=== PATIENT | female | born 1965 | race Caucasian/White ===

== ENCOUNTER → 2016-12-09 | Outpatient (CLI) | payer MEDICARE, OTHER ==
--- NOTE | 2016-12-09 17:36 | XR ---
EXAMINATION TYPE: XR chest 2V DATE OF EXAM: 12/09/2016 5:32 PM HISTORY: J44.9 COPD. REFERENCE: None. FINDINGS: There has been moses fixation of the dorsal spine. There is a persistent dextroscoliosis. The lungs are clear. Pleural space are clear. The heart is not enlarged. IMPRESSION: NO ACUTE INTRATHORACIC ABNORMALITY.
--- NOTE | 2016-12-10 06:56 | CT ---
EXAMINATION TYPE: CT abdomen pelvis w con DATE OF EXAM: 12/09/2016 7:29 PM REFERENCE: NONE HISTORY: R10.9 Abdominal Pain, Unspecified Site HISTORY: Pt states of abdominal pain and distention. CT DLP: 566.0 mGy Automated exposure control for dose reduction was used. TECHNIQUE: Helical acquisition through the abdomen and pelvis was obtained following the oral ingesti on of with Oral Contrast and following intravenous administration of 100 mL of Omnipaque 300. The radha a was reformatted in axial, coronal and sagittal projections. FINDINGS: There has been moses fixation of the thoracolumbar spine. Visualized portions of the lungs are clear. There is no pleural or pericardial fluid. The heart is no t enlarged. Within the abdomen, the gallbladder has been removed. Liver and spleen appear normal. Both adrenal glands appear normal. Both kidneys demonstrate function and appear morphologically normal. The pancreas is unremarkable. There is mild atheromatous calcification of the visualized arterial tree. There is no significant ret roperitoneal, iliac or inguinal adenopathy. The uterus and ovaries are not visualized. The bladder is unremarkable. There is no significant diverticular disease and there is no radiographic evidence of diverticulitis. The appendix is not visualized. Small bowel loops appear normal. There is no free air and no free fluid identified. There is a moderate dextroscoliosis within the thoracic spine. IMPRESSION: 1. NO ACUTE INFLAMMATORY ABNORMALITY. 2. POSTSURGICAL CHANGE.
== END | disposition home or self-care (01) ==
LOC: RADCTMAIN 17:09
PROVIDERS: ATTEND Family Medicine
DX: R10.9 Unspecified abdominal pain (principal); J44.9 Chronic obstructive pulmonary disease, unspecified
CPT/HCPCS: 71020; 74177; Q9967

== ENCOUNTER → 2016-12-23 | Outpatient (CLI) | payer MEDICARE, OTHER ==
--- NOTE | 2016-12-27 14:25 | USB ---
Reason for exam: clinical finding. History: Patient is postmenopausal. Took estrogen for 6 months beginning at age 34. Physical Findings: Nurse Summary: 0.5cm x 2 movable, tender (nurse dw). US Breast BILAT Right breast ultrasound includes all four quadrants, the retroareolar region and axilla. Finding demonstrates no cystic or solid lesion seen. Left breast ultrasound includes all four quadrants, the retroareolar region and axilla. Finding demonstrates a 5mm solid lesion at 3 o'clock, probable lymph node at palpable. These results were verbally communicated with the patient and result sheet given to the patient on 12/27/16. ASSESSMENT: Probably benign, BI-RAD 3 RECOMMENDATION: Ultrasound of the left breast in 6 months. (at palpable)
== END | disposition home or self-care (01) ==
LOC: RADUSWWP 14:39
PROVIDERS: ATTEND Family Medicine
DX: N63 Unspecified lump in breast (principal)

== ENCOUNTER → 2018-02-15 | Outpatient (CLI) | payer MEDICARE, OTHER ==
--- NOTE | 2018-02-15 11:24 | CT ---
EXAMINATION TYPE: CT cervical spine wo con DATE OF EXAM: 02/15/2018 COMPARISON: NONE HISTORY: Cervical stenosis CT DLP: [address] of the cervical spine was performed with bone and soft tissue window settings submitted . Coronal and sagittal reconstruction is obtained. There is normal alignment and prevertebral soft tissues. I do not see evidence for fracture or subluxation. Mild degenerative disc space narrowing i s noted at C4-5, C5-6 and C6-7. There is no evidence for disc herniation or protrusion. Mild disc bul ge at C4-5 and C5-6. No central stenosis is present. No evidence for foraminal encroachment. The lung apices are clear IMPRESSION: 1. Mild degenerative disc space narrowing and disc bulging without evidence for herniation or central stenosis.
== END | disposition home or self-care (01) ==
LOC: RADCTMAIN 09:28
PROVIDERS: ATTEND Family Medicine
DX: M48.02 Spinal stenosis, cervical region (principal); M50.221 Other cervical disc displacement at C4-C5 level
CPT/HCPCS: 70546; 72125

== ENCOUNTER → 2018-02-15 | Outpatient (CLI) | payer MEDICARE, OTHER ==
--- NOTE | 2018-02-15 19:45 | MR ---
EXAMINATION TYPE: MR angio head wo/w con DATE OF EXAM: 02/15/2018 COMPARISON: 06/08/2016 HISTORY: Cerebral aneurysm, nonruptured TECHNIQUE: Time of flight images focusing on the Leonore of Doyle were performed utilizing 7 mL intra venous Gadavist gadolinium contrast. FINDINGS: Note is made of severe ectasia of the right distal internal carotid artery below the skull base. There is a large aneurysm at the origin of the left internal carotid artery. This currently measures 1.4 x 0.8 cm in size. This appears similar to prior examination. The left internal carotid artery bifurcates A1 and M1 segments. The anterior communicating artery is patent. The right internal carotid artery terminates in the right middle cerebral artery branches. Ti ny amount contrast extends into a hypoplastic right A1 segment. Middle cerebral artery branches are n ormal. Posterior communicating arteries are patent. The vertebral basilar system appears normal. Posterior c erebral vasculature appears normal. 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
== END | disposition home or self-care (01) ==
LOC: RADMRIMAIN 10:01
PROVIDERS: ATTEND Neurological Surgery
DX: I67.1 Cerebral aneurysm, nonruptured (principal)
CPT/HCPCS: 70546; A9581

== ENCOUNTER 2018-11-01 14:04 | Emergency (ER) | payer MEDICARE, OTHER ==
[2018-11-01 14:28] VITALS: RESP 18
[2018-11-01] MEDS ORDERED: SODIUM CHLORIDE 0.9% 1,000 ML IV STA (14:40)
--- NOTE | 2018-11-01 14:52 | ED ---
Abdominal Pain HPI - General Chief Complaint: Abdominal Pain Stated Complaint: Left side pain Time Seen by Provider: 11/01/18 14:31 Source: patient, RN notes reviewed Mode of arrival: ambulatory Limitations: no limitations - History of Present Illness Initial Comments: 53-year-old female sent emergency Department chief complaint of left lower quadrant abdominal pain. Patient states has been progressively bothersome over the last week or 2. Patient states she does have a history of diverticulitis and bowel infections in the past. She states she does feel constipated at times. She does feel more pain when she lays down she's had a total hysterectomy. She has no current dysuria no hematuria. Denies any fever, chills, flank pain, chest pain or shortness breath. Patient does take Linzess for chronic constipation though she has not been taking it correctly. She states she only takes it when she feels constipated. - Related Data Home Medications Medication Instructions Recorded Confirmed Albuterol Inhaler [Ventolin Hfa 2 puff INHALATION RT-Q4H PRN 11/01/18 11/01/18 Inhaler] Amitriptyline HCl [Elavil] 50 mg PO DAILY 11/01/18 11/01/18 Aspirin 325 mg PO DAILY 11/01/18 11/01/18 HYDROcodone/APAP 5-325MG [[place] 1 tab PO DAILY PRN 11/01/18 11/01/18 5-325] Simvastatin [Zocor] 80 mg PO HS 11/01/18 11/01/18 Zolpidem [Ambien] 5 mg PO HS PRN 11/01/18 11/01/18 Previous Rx's Medication Instructions Recorded Cyclobenzaprine [Flexeril] 5 mg PO TID PRN #15 tablet 11/01/18 Allergies Allergy/AdvReac Type Severity Reaction Status Date / Time morphine Allergy Rash/Hives Verified 11/01/18 15:04 Review of Systems ROS Statement: Those systems with pertinent positive or pertinent negative responses have been documented in the HPI. ROS Other: All systems not noted in ROS Statement are negative. Past Medical History Past Medical History: Coronary Artery Disease (CAD), Hyperlipidemia History of Any Multi-Drug Resistant Organisms: None Reported Past Surgical History: Cholecystectomy, Hysterectomy Additional Past Surgical History / Comment(s): scoliosis Past Psychological History: No Psychological Hx Reported Smoking Status: Current every day smoker Past Alcohol Use History: Rare Past Drug Use History: None Reported General Exam Limitations: no limitations General appearance: alert, in no apparent distress Head exam: Present: atraumatic, normocephalic, normal inspection Neck exam: Present: normal inspection. Absent: tenderness, meningismus, lymphadenopathy Respiratory exam: Present: normal lung sounds bilaterally. Absent: respiratory distress, wheezes, rales, rhonchi, stridor Cardiovascular Exam: Present: regular rate, normal rhythm, normal heart sounds. Absent: systolic murmur, diastolic murmur, rubs, gallop, clicks GI/Abdominal exam: Present: soft, tenderness (Mild tenderness to left lower quadrant), normal bowel sounds. Absent: distended, guarding, rebound, rigid Back exam: Absent: CVA tenderness (R), CVA tenderness (L) Skin exam: Present: warm, dry, intact, normal color. Absent: rash Course Vital Signs 11/01/18 14:25 Temperature 98.4 F Pulse Rate 78 Respiratory 18 Rate Blood Pressure 96/42 O2 Sat by Pulse 94 L Oximetry Medical Decision Making - Medical Decision Making 53-year-old female presented from for abdominal pain. Patient lab work and CT. Patient has no evidence of intra-abdominal process. Patient's pain is worsened with this may be related to abdominal wall strain versus hip flexor strain. Patient will be discharged return parameters were discussed. - Lab Data Result diagrams: 11/01/18 14:57 11/01/18 14:57 Lab Results 11/01/18 11/01/18 11/01/18 Range/Units 14:57 14:57 14:57 WBC 7.4 (3.8-10.6) k/uL RBC 4.68 (3.80-5.40) m/uL Hgb 13.5 (11.4-16.0) gm/dL Hct 41.7 (34.0-46.0) % MCV 89.0 (80.0-100.0) fL MCH 28.9 (25.0-35.0) pg MCHC 32.5 (31.0-37.0) g/dL RDW 13.7 (11.5-15.5) % Plt Count 233 (150-450) k/uL Neutrophils % 61 % Lymphocytes % 29 % Monocytes % 6 % Eosinophils % 2 % Basophils % 1 % Neutrophils # 4.5 (1.3-7.7) k/uL Lymphocytes # 2.2 (1.0-4.8) k/uL Monocytes # 0.4 (0-1.0) k/uL Eosinophils # 0.2 (0-0.7) k/uL Basophils # 0.1 (0-0.2) k/uL Sodium 141 (137-145) mmol/L Potassium 3.5 (3.5-5.1) mmol/L Chloride 100 (98-107) mmol/L Carbon Dioxide 32 H (22-30) mmol/L Anion Gap 9 mmol/L BUN 12 (7-17) mg/dL Creatinine 0.65 (0.52-1.04) mg/dL Est GFR (CKD-EPI)AfAm >90 (>60 ml/min/1.73 sqM) Est GFR (CKD-EPI)NonAf >90 (>60 ml/min/1.73 sqM) Glucose 101 H (74-99) mg/dL Plasma Lactic Acid Nic 1.6 (0.7-2.0) mmol/L Calcium 9.8 (8.4-10.2) mg/dL Total Bilirubin 0.6 (0.2-1.3) mg/dL AST 15 (14-36) U/L ALT 21 (9-52) U/L Alkaline Phosphatase 53 (38-126) U/L Total Protein 7.3 (6.3-8.2) g/dL Albumin 4.3 (3.5-5.0) g/dL Amylase 59 (30-110) U/L Lipase 82 (23-300) U/L Urine Color Urine Appearance (Clear) Urine pH (5.0-8.0) Ur Specific [place] (1.001-1.035) Urine Protein (Negative) Urine Glucose (UA) (Negative) Urine Ketones (Negative) Urine Blood (Negative) Urine Nitrite (Negative) Urine Bilirubin (Negative) Urine Urobilinogen (<2.0) mg/dL Ur Leukocyte Esterase (Negative) 11/01/18 Range/Units 14:57 WBC (3.8-10.6) k/uL RBC (3.80-5.40) m/uL Hgb (11.4-16.0) gm/dL Hct (34.0-46.0) % MCV (80.0-100.0) fL MCH (25.0-35.0) pg MCHC (31.0-37.0) g/dL RDW (11.5-15.5) % Plt Count (150-450) k/uL Neutrophils % % Lymphocytes % % Monocytes % % Eosinophils % % Basophils % % Neutrophils # (1.3-7.7) k/uL Lymphocytes # (1.0-4.8) k/uL Monocytes # (0-1.0) k/uL Eosinophils # (0-0.7) k/uL Basophils # (0-0.2) k/uL Sodium (137-145) mmol/L Potassium (3.5-5.1) mmol/L Chloride (98-107) mmol/L Carbon Dioxide (22-30) mmol/L Anion Gap mmol/L BUN (7-17) mg/dL Creatinine (0.52-1.04) mg/dL Est GFR (CKD-EPI)AfAm (>60 ml/min/1.73 sqM) Est GFR (CKD-EPI)NonAf (>60 ml/min/1.73 sqM) Glucose (74-99) mg/dL Plasma Lactic Acid Nic (0.7-2.0) mmol/L Calcium (8.4-10.2) mg/dL Total Bilirubin (0.2-1.3) mg/dL AST (14-36) U/L ALT (9-52) U/L Alkaline Phosphatase (38-126) U/L Total Protein (6.3-8.2) g/dL Albumin (3.5-5.0) g/dL Amylase (30-110) U/L Lipase (23-300) U/L Urine Color Yellow Urine Appearance Clear (Clear) Urine pH 6.0 (5.0-8.0) Ur Specific [place] 1.019 (1.001-1.035) Urine Protein Trace H (Negative) Urine Glucose (UA) Negative (Negative) Urine Ketones Negative (Negative) Urine Blood Negative (Negative) Urine Nitrite Negative (Negative) Urine Bilirubin Negative (Negative) Urine Urobilinogen 3.0 (<2.0) mg/dL Ur Leukocyte Esterase Negative (Negative) Disposition Clinical Impression: Abdominal wall strain, Hip strain Disposition: HOME SELF-CARE Condition: Stable Instructions (If sedation given, give patient instructions): Groin Strain (ED) , Muscle Strain (ED) Additional Instructions: Please return to the Emergency Department if symptoms worsen or any other concerns. Prescriptions: Cyclobenzaprine [Flexeril] 5 mg PO TID PRN #15 tablet PRN Reason: Muscle Spasm Is patient prescribed a controlled substance at d/c from ED?: No Referrals: Ethan Dunaway MD [Primary Care Provider] - 1-2 days Time of Disposition: 16:34
[2018-11-01 15:14] LABS: Appearance,Urine Clear (Clear); Bilirubin,Urine Negative (Negative); Blood,Urine Negative (Negative); Color,Urine Yellow; Glucose,Urine (UA) Negative (Negative); Ketones,Urine Negative (Negative); Leukocyte Esterase,Urine Negative (Negative); Nitrite,Urine Negative (Negative); Protein,Urine Trace (Negative); Specific Gravity,Urine 1.019 (1.001-1.035)
[2018-11-01 15:15] LABS: Basophils # (A) 0.1 k/uL (0-0.2); Basophils % (A) 1 %; Eosinophils # (A) 0.2 k/uL (0-0.7); Eosinophils % (A) 2 %; HCT 41.7 % (34.0-46.0); HGB 13.5 gm/dL (11.4-16.0); Lymphocytes # (A) 2.2 k/uL (1.0-4.8); Lymphocytes % (A) 29 %; MCH 28.9 pg (25.0-35.0); MCHC 32.5 g/dL (31.0-37.0); Mean Platelet Volume 7.7; Monocytes # (A) 0.4 k/uL (0-1.0); Monocytes % (A) 6 %; Neutrophils # (A) 4.5 k/uL (1.3-7.7); Neutrophils % (A) 61 %; Platelet Count 233 k/uL (150-450); RBC 4.68 m/uL (3.80-5.40); RDW 13.7 % (11.5-15.5); WBC 7.4 k/uL (3.8-10.6)
[2018-11-01 15:28] LABS: ALT 21 U/L (9-52); AST 15 U/L (14-36); Albumin 4.3 g/dL (3.5-5.0); Alkaline Phosphatase 53 U/L (38-126); Amylase 59 U/L (30-110); Anion Gap 9 mmol/L; Blood Urea Nitrogen 12 mg/dL (7-17); Calcium 9.8 mg/dL (8.4-10.2); Carbon Dioxide 32 mmol/L (22-30); Chloride 100 mmol/L (98-107); Glucose 101 mg/dL (74-99); Lipase 82 U/L (23-300); Potassium 3.5 mmol/L (3.5-5.1); Sodium 141 mmol/L (137-145); Total Bilirubin 0.6 mg/dL (0.2-1.3); Total Protein 7.3 g/dL (6.3-8.2)
--- NOTE | 2018-11-01 15:52 | CT ---
EXAMINATION TYPE: CT abdomen pelvis w con DATE OF EXAM: 11/01/2018 COMPARISON: 12/09/2016 HISTORY: Left sided abdominal pain. CT DLP: 723.9 mGycm CONTRAST: CT scan of the abdomen and pelvis is performed without Oral Contrast and with IV Contrast, patient in jected with 100 mL of Isovue 300. FINDINGS: LUNG BASES-: No visible nodule. No infiltrate. LIVER/GB: Cholecystectomy clips are in place. No space occupying hepatic lesion. Biliary tree is o f normal caliber. PANCREAS: No inflammation. No distinct mass. SPLEEN: No splenic enlargement. No lesion seen. ADRENALS: No nodule. No thickening. KIDNEYS/BLADDER: No hydronephrosis. No nephrolithiasis. No distinct renal mass. Urinary bladder g rossly unremarkable. BOWEL: Appendectomy changes noted. Normal bowel caliber. No inflammation. GENITAL ORGANS: No gross abnormality. LYMPH NODES: No greater than 1cm abdominal or pelvic lymph nodes are appreciated. AORTA: No significant abnormality. OSSEOUS STRUCTURES: Postoperative changes lumbar spine. OTHER: No significant additional abnormality is seen. IMPRESSION: 1. No acute process identified to account for the patient's symptoms.
[2018-11-01 16:58] VITALS: BP 117/91; PULSE 66; TEMP 97.9
== END 2018-11-01 16:58 | disposition home or self-care (01) ==
LOC: EC 14:04
DX: S39.011A Strain of muscle, fascia and tendon of abdomen, initial encounter (principal); S76.019A Strain of muscle, fascia and tendon of unspecified hip, initial encounter; K59.00 Constipation, unspecified; I25.10 Atherosclerotic heart disease of native coronary artery without angina pectoris; E78.5 Hyperlipidemia, unspecified; F17.200 Nicotine dependence, unspecified, uncomplicated; Z87.19 Personal history of other diseases of the digestive system; Z90.49 Acquired absence of other specified parts of digestive tract; Z90.710 Acquired absence of both cervix and uterus; Z79.82 Long term (current) use of aspirin; Z79.899 Other long term (current) drug therapy; Z88.5 Allergy status to narcotic agent; X58.XXXA Exposure to other specified factors, initial encounter
CPT/HCPCS: 36415; 80053; 82150; 83605; 83690; 85025; 81003; 74177; 99284; 96360; 96361; Q9967

== ENCOUNTER → 2019-04-02 | Outpatient (CLI) | payer MEDICARE, OTHER ==
--- NOTE | 2019-04-03 08:46 | MM ---
Reason for exam: clinical finding. Last mammogram was performed 4 years and 8 months ago. History: Patient is postmenopausal. Took estrogen for 6 months beginning at age 34. Physical Findings: Nurse did not find any significant physical abnormalities on exam. MG 3D Diag Mammo W/Cad BEAN Bilateral CC, MLO, ML, and spot compression CC view(s) were taken. Prior study comparison: July 22, 2014, mammogram, performed at [place]. December 03, 2013, mammogram, performed at [place]. There are scattered fibroglandular densities. Subareolar nodular density right CC view disperses on spot 3D CC. Subareolar asymmetric density left CC view compresses on spot 3D CC with an appearance of fibroglandular tissue. These results were verbally communicated with the patient and result sheet given to the patient on 04/02/19. ASSESSMENT: Benign, BI-RAD 2 RECOMMENDATION: Routine screening mammogram of both breasts in 1 year.
--- NOTE | 2019-04-03 10:30 | XR ---
EXAMINATION TYPE: XR chest 2V DATE OF EXAM: 04/02/2019 COMPARISON: 12/09/2016 HISTORY: Shortness of breath TECHNIQUE: Frontal and lateral views of the chest are obtained. FINDINGS: Scattered senescent parenchymal changes noted. Hyperinflation compatible with COPD. No evidence for infiltrate. No evidence for atelectasis. Heart size is stable. Mediastinal structures are stable and grossly unremarkable. No evidence for hilar prominence. Degenerative changes dorsal spine. Wilkins rods remain in place. IMPRESSION: 1. No evidence for acute pulmonary disease.
== END | disposition home or self-care (01) ==
LOC: RADMAMWWP 15:20
PROVIDERS: ATTEND Family Medicine
DX: N64.4 Mastodynia (principal); R92.0 Mammographic microcalcification found on diagnostic imaging of breast; J44.9 Chronic obstructive pulmonary disease, unspecified
CPT/HCPCS: 71046; 77066; G0279; 77062

== ENCOUNTER → 2020-12-01 | Outpatient (CLI) | payer MEDICARE, OTHER ==
[2020-12-01 14:29] VITALS: BP 123/83; PULSE 90; RESP 18; TEMP 98.8
--- NOTE | 2020-12-01 15:34 | P.HPOB ---
History of Present Illness H&P Date: 12/01/20 Chief Complaint: The patient is here for her routine gynecologic exam. This is a 55-year-old with an LMP of 1999. She is status post FREDRICK and BSO for benign reasons. She is here to establish with this office. It has been more than 10 years since her last pelvic exam. She previously was seen by Dr. Rose in the [facility] for this. She has a history of occasional vaginal odor and occasional vaginal discharge. She states she currently is not noticing these at this time. The odor reminds her of when she once left a tampon in the vagina prior to her hysterectomy. At times she wonders if it is possible that a tampon could've been left in place since prior to the hysterectomy. She has occasional hot flashes which are not a very big problem. Review of Systems The patient has gained 10 pounds over the last year. She denies respiratory or cardiac problems. GI: Occasional constipation. Past Medical History Past Medical History: Coronary Artery Disease (CAD), COPD, Hyperlipidemia Additional Past Medical History / Comment(s): Migraine headaches, brain aneurysm, colitis. Past GEOSCIENTIST history: History of endometriosis. She wants was told she may have had HPV on her Pap smear years ago. She has no other history of STDs. History of Any Multi-Drug Resistant Organisms: None Reported Past Surgical History: Appendectomy, Cholecystectomy, Hysterectomy Additional Past Surgical History / Comment(s): scoliosis back surgery. FREDRICK with unilateral oophorectomy 1999. Removal of the remaining ovary 2000. Cerebral aneurysm coil placement. Colonoscopy 2014(next after 5yr). Past Psychological History: No Psychological Hx Reported Smoking Status: Current every day smoker (One pack per day) Past Alcohol Use History: Occasional (1 or 2 per month) Past Drug Use History: None Reported Additional History: She is and has not been seeing anybody or sexually active for many years. She is considered disabled. - Past Family History Father Family Medical History: Cancer Additional Family Medical History / Comment(s): Colon cancer. Mother Family Medical History: CVA/TIA Additional Family Medical History / Comment(s): Heart disease. . Medications and Allergies Home Medications and Allergies Comment(s): Emgality injections monthly. Home Medications Medication Instructions Recorded Confirmed Type Albuterol Inhaler (Mhu) [Ventolin 2 puff INHALATION RT-Q4H PRN 11/01/18 12/01/20 History Hfa Inhaler] Amitriptyline HCl [Elavil] 50 mg PO DAILY 11/01/18 12/01/20 History Aspirin 325 mg PO DAILY 11/01/18 12/01/20 History HYDROcodone/APAP 5-325MG [[place]calister 1 tab PO DAILY PRN 11/01/18 12/01/20 History 5-325] Simvastatin [Zocor] 80 mg PO HS 11/01/18 12/01/20 History Zolpidem [Ambien] 5 mg PO HS PRN 11/01/18 12/01/20 History Allergies Allergy/AdvReac Type Severity Reaction Status Date / Time morphine Allergy Rash/Hives Verified 12/01/20 14:24 Exam Vital Signs Temp Pulse Resp BP Pulse Ox 12/01/20 14:27 98.8 F 90 18 123/83 97 Intake and Output 12/01/20 12/01/20 12/01/20 06:59 14:59 22:59 Other: Weight 67.585 kg Height 5 feet 7 inches, weight 149 pounds, BMI 23.3. This is a well-developed well-nourished white female who is alert and oriented times 3 in no acute distress. HEENT: Within normal limits. NECK: Supple without mass or thyromegaly. CHEST AND LUNGS: Clear to auscultation. HEART: Regular rate and rhythm. BREASTS: Are without mass or discharge. AXILLARY EXAM: Negative for adenopathy. BACK: Negative for CVA tenderness. ABDOMEN: Soft, nontender, without palpable masses. PELVIC EXAM: External genitalia appears normal with mild atrophy. Vagina appears normal with mild atrophy. There is no gross discharge on inspection, however upon swabbing for the affirm vaginitis panel, the white cotton swab appears yellow. No odor is noted. There is no evidence of prolapse. Bimanual examination is negative for mass or tenderness. RECTAL EXAM: Rectovaginal exam is negative for mass or tenderness and is negative for occult blood. EXTREMITIES: Nontender. IMPRESSION: 1. 55-year-old menopausal female status post FREDRICK/BSO for benign reasons with slight yellowish vaginal discharge. 2. The patient states she has had intermittent slight discharge and slight v aginal odor which began prior to 1999. No evidence of retained foreign objects in the vagina. No evidence of fistula on exam. PLAN: 1. Pap smears have been discontinued. 2. Self breast awareness was discussed with the patient. 3. Screening mammogram is due and the order slip was given to the patient for this. She has an appointment for this on 12/23/2020. 4. Affirm vaginitis panel was obtained from the vagina. This will be used to check for eduin, Gardnerella, and Trichomonas. 5. Osteoporosis prevention was discussed. I have stressed the importance of adequate calcium, vitamin D and regular exercise. Recommended amounts of calcium and vitamin D were also discussed. 6. I have recommended that she quit smoking. She has a prescription for Wellbutrin from her PCP which will be used to help her to quit smoking. She has not yet filled the prescription. 7. She believes she is due for a colonoscopy. She will discuss this with her PCP to see if they can help her to arrange for this. 8. She was advised to return in one year for her annual well woman exam and as needed. She was also instructed to make an appointment for reevaluation if she develops the vaginal odor or vaginal discharge in the future.
--- NOTE | 2020-12-02 11:27 | P.PN ---
Progress Note - Text Progress Note Date: 12/02/20 OUTPATIENT FOLLOW-UP NOTE TEST(S)/RESULTS: Affirm testing done on 12/01/2020 was positive for Gardnerella and negative for Darlene and Trichomonas. METHOD OF NOTIFICATION: A message with this result was left on the patient's voicemail. PATIENT COMMENTS: DIAGNOSIS: Bacterial vaginosis DISCUSSION: The affirm testing was done because of the patient's complaint of intermittent vaginal odor and a slight discharge was noted on exam yesterday. The patient will be treated for bacterial vaginosis with metronidazole 500 mg by mouth twice a day 7 days. I have left a message that the electronic prescription will be sent to [facility] pharmacy on [facility]. I have also left a message instructing her to avoid drinking alcohol while she is taking this medication. She is to call if she has any questions or problems. PLAN: As above.
== END ==
LOC: WWCWWP 14:12
PROVIDERS: ATTEND Obstetrics & Gynecology
DX: Z01.419 Encounter for gynecological examination (general) (routine) without abnormal findings (principal); I25.10 Atherosclerotic heart disease of native coronary artery without angina pectoris; J44.9 Chronic obstructive pulmonary disease, unspecified; E78.5 Hyperlipidemia, unspecified; F17.210 Nicotine dependence, cigarettes, uncomplicated; Z90.722 Acquired absence of ovaries, bilateral; Z90.710 Acquired absence of both cervix and uterus; Z79.82 Long term (current) use of aspirin

== ENCOUNTER → 2020-12-23 | Outpatient (CLI) | payer MEDICARE, OTHER ==
--- NOTE | 2020-12-28 11:07 | MM ---
Reason for exam: screening (asymptomatic). Last mammogram was performed 1 year and 9 months ago. History: Patient is postmenopausal. Took estrogen for 6 months beginning at age 34. Physical Findings: A clinical breast exam by your physician is recommended on an annual basis and results should be correlated with mammographic findings. MG 3D Screening Mammo W/Cad Bilateral CC and MLO view(s) were taken. XCCL view(s) were taken of the right breast. Prior study comparison: April 02, 2019, bilateral MG 3d diag mammo w/cad BEAN. The breast tissue is heterogeneously dense. This may lower the sensitivity of mammography. No significant changes when compared with prior studies. ASSESSMENT: Benign, BI-RAD 2 RECOMMENDATION: Routine screening mammogram of both breasts in 1 year.
== END | disposition home or self-care (01) ==
LOC: RADMAMWWP 15:55
PROVIDERS: ATTEND Family Medicine
DX: Z12.31 Encounter for screening mammogram for malignant neoplasm of breast (principal); Z78.0 Asymptomatic menopausal state
CPT/HCPCS: 77063; 77067

== ENCOUNTER → 2022-03-15 | Outpatient (CLI) | payer MEDICARE, OTHER ==
--- NOTE | 2022-03-15 21:11 | CT ---
EXAMINATION TYPE: CT lumbar spine wo con DATE OF EXAM: 03/15/2022 7:08 PM COMPARISON: CT abdomen and pelvis November 01, 2018. HISTORY: INTERVERTEBRAL DISC DEGENERATION,LUMBAR. History of scoliosis surgery at age 10. CT DLP: 541.5 mGycm Automated exposure control for dose reduction was used. Unenhanced CT of the lumbar spine was performed. Bone and soft tissue window settings are submitted as well as coronal and sagittal reconstructions. There are 5 lumbar type vertebra are redemonstrated. Persistent levoconvex scoliosis centered at L2-L 3 level. Persistent straightening of the lumbar spine on sagittal images. Partial visualization of lo ng segment left-sided Wilkins moses and smaller right-sided Wilkins moses. Vertebral body heights a re maintained. Mild disc space narrowing L2-L3 level redemonstrated. Axial images redemonstrate mild broad disc bulge L3-L4 level and moderate to advanced facet arthropat hy bilaterally. Minimal effacement of anterior thecal sac is seen. The bilateral neural foramina thania in patent. Axial images at L4-L5 level show moderate facet arthropathy and ligamentum flavum hypertrophy effacin g posterior lateral thecal sac. [id number] broad disc bulge mildly effaces the anterior thecal sac. Patent bilateral neural foramina. Axial images at L5-S1 level redemonstrated moderate facet arthropathy bilaterally. Spinal canal is pr eserved. Bilateral neural foramina show asymmetric moderate left-sided neural foraminal narrowing due to marginal spurring. Moderate calcified plaque in the distal abdominal aorta redemonstrated with ectasia, no greater than 3.0 cm aneurysm. IMPRESSION: Persistent slight scoliosis despite attempted surgical correction. Multilevel degenerativ e changes in the mid to lower lumbar spine as detailed above.
== END | disposition home or self-care (01) ==
LOC: RADCTMAIN 18:41
PROVIDERS: ATTEND Family Medicine
DX: M51.36 Other intervertebral disc degeneration, lumbar region (principal); M47.816 Spondylosis without myelopathy or radiculopathy, lumbar region
CPT/HCPCS: 72131

== ENCOUNTER → 2023-09-01 | Outpatient (CLI) | payer MEDICARE, OTHER ==
--- NOTE | 2023-09-01 19:32 | BD ---
EXAMINATION TYPE: Axial Bone Density DATE OF EXAM: 09/01/2023 CLINICAL HISTORY: 58 years old Female. ICD-10 CODE: Z12.31 SCREENING Z13.820 ENCOUNTER FOR SCREENING F Height: 64.5 Weight: 152.6 FRAX RISK QUESTIONS: Alcohol (3 or more units per day): no Family History (Parent hip fracture): no Glucocorticoids (More than 3mos): no History of Fracture in Adulthood: no Secondary Osteoporosis: 1. Type 1 Diabetes: no 2. Hyperthyroidism: no 3. Menopause before 45: yes 4. Malnutrition: no 5. Chronic liver disease: no Rheumatoid Arthritis: no Current Tobacco Use: yes RISK FACTORS HISTORY OF: Hip Fracture (Right/Left): no Spine Fracture: no History of Wrist Fracture: no Surgery to Spine/Hip(right/left)/Wrist (right/left): Scoliosis Rods age 10 Family History of Osteoporosis: no Active: no Diet low in dairy products/other sources of calcium: yes Postmenopausal woman: yes Take estrogen and/or progesterone medications: no Lost more than 2 inches in height since high school: yes Frequent falls: no Poor Health: no Hyperparathyroidism: no Adrenal Insufficiency: no MEDICATIONS: Prednisone or other steroids: no Thyroid Medications: no Osteoporosis Medications: no Additional Medications: BP Meds, Cholesterol Meds, Reflux Meds, Magnesium, Vit D Additional History: EXAM MEASUREMENTS: Bone mineral density about the R hip (g/cm2): 0.910 Bone mineral density about the L hip (g/cm2): 0.898 T Score values are as follows: -----R Neck: -0.9 -----L Neck: -0.5 -----R Total: -0.8 -----L Total: -0.9 Z Score values are as follows: -----R Neck: 0.3 -----L Neck: 0.7 -----R Total: 0.0 -----L Total: -0.1 Baseline Study Bone mineral density about the L Wrist (g/cm2): 0.540 T Score values are as follows: -----Dist. R+U: -2.5 -----Prox. R+U: -2.1 -----Radius total: -2.8 Z Score values are as follows: -----Dist. R+U: -1.6 -----Prox. R+U: -1.2 -----Radius total: -1.3 Baseline Study FRAX%s: The graph provided illustrates a 12.7% chance for a major osteoporotic fx and a 4.4% chance f or the hips probability for fx in 10 years time. IMPRESSION: Osteopenia (T Score between -2.5 and -1). There is slightly increased risk of fracture and the patient may be considered for treatment. Re-Screen 2-5 years. NOTE: T-SCORE=SD OF THE YOUNG ADULT MEAN.
== END | disposition home or self-care (01) ==
LOC: RADBDWWP 06-27 13:19
PROVIDERS: ATTEND Internal Medicine
DX: Z53.9 Procedure and treatment not carried out, unspecified reason (principal)
CPT/HCPCS: 77063; 77067; 77080

== ENCOUNTER → 2024-12-16 | Outpatient (CLI) | payer MEDICARE, OTHER ==
--- NOTE | 2024-12-16 14:19 | US ---
EXAMINATION TYPE: US carotid duplex BILAT DATE OF EXAM: 12/16/2024 COMPARISON: NONE CLINICAL INDICATION: Female, 59 years old with history of [id number] BILAT CAROTID ARTERY STENOSIS; Recent dizziness, HTN, no hx TIA Additional History: .... TECHNIQUE: Grayscale, color Doppler and spectral Doppler evaluation of the bilateral carotid systems and vertebral arteries. Indirect Doppler criteria was utilized. 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 Plaque seen anterior left bulb. Color Doppler imaging shows patency with blood flow throughout the carotid artery. Spectral waveforms are within normal limits. IMPRESSION: 1. Atheromatous plaquing without significant flow-limiting stenosis based on velocities. Criteria for Assigning % of Stenosis / Diameter reduction (Estimation based on the indirect measurements of the internal carotid artery velocities (ICA PSV). 1. Normal (no stenosis)=ICA PSV < 180 cm/s: ratio < 2.0: ICA EDV<40 cm/s. 2. Less than 50% stenosis=ICA PSV < 180 cm/s: ratio < 2.0: ICA EDV<40 cm/s. 3. 50 to 69% stenosis=ICA PSV of 180 to 230 cm/s: ration 2.0 ? 4.0: ICA EDV 40-100 cm/s. PSV 125-180 cm/sec and ICA/CCA PSV Ratio ? 2.0 is also consistent with 50-69% stenosis 4. Greater than 70% stenosis to near occlusion= ICA PSV > 230 cm/s: ratio > 4.0: ICA EDV > 100 cm/s. 5. Near occlusion= ICA PSV velocities may be low or undetectable: variable ratio and ICA EDV. 6. Total occlusion=unable to detect flow. [facility], , 12/16/2024 2:17 PM
--- NOTE | 2024-12-16 14:20 | US ---
EXAMINATION TYPE: US Aorta Screening DATE OF EXAM: 12/16/2024 COMPARISON: NONE CLINICAL INDICATION: Female, 59 years old with history of Z136 AAA SCREENING; Screening TECHNIQUE: Multiple sonographic images of the abdominal aorta are obtained with grayscale and color D oppler imaging. 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 IMPRESSION: No suspicious changes for aneurysm screening aortic ultrasound [email or web address] [facility], , 12/16/2024 2:18 PM
--- NOTE | 2024-12-16 15:11 | CTL ---
EXAMINATION TYPE: CT Low Dose Lung DATE OF EXAM ORDERED: 12/16/2024 COMPARISON: Chest radiograph 11/14/2023 CLINICAL INDICATION: Female, 59 years old with history of I71.20 THORACIC AORTIC ANEURYSM, WITHOUT RU PTURE,; PHH, personal tobacco use, Lung cancer screening, current smoker, 40 pack-year history. Histo ry of Smoking/tobacco use. TECHNIQUE: Low dose computed tomography scan was performed through the chest at 1 mm thick sections a nd reconstructed images in multiple planes at 1 mm and [address] DLP: 80.[address] CTDI: 2.3 mGy Automated exposure control for dose reduction was used. CT DIAGNOSTIC QUALITY: Satisfactory FINDINGS: Nodules: Posterior left upper lobe 1.8 mm pulmonary nodule (series 6, image 15). LUNGS: COPD: Severity: Moderate bilateral upper lobe centrilobular and paraseptal emphysema changes. Right a pical bulla measuring up to 6.9 cm. Fibrosis: Severity: None Lymph nodes: None Other findings: Biapical pleural-parenchymal scarring. RIGHT PLEURAL SPACE: Effusion: None Calcification: None Thickening: None Pneumothorax: None LEFT PLEURAL SPACE: Effusion: None Calcification: None Thickening: None Pneumothorax: None HEART: Heart Size: Normal Coronary Calcification: Minimal Pericardial Effusion: None OTHER FINDINGS: Upper abdomen: Gallbladder is surgically absent. Bony thorax: Postsurgical changes from scoliosis with bilateral Wilkins rods. Supraclavicular region: None Other: Mild atherosclerotic calcification of the aorta and its branches. The ascending thoracic aorta measures up to 2.9 cm. The aortic root measures up to 2.8 cm. The descending thoracic aorta measures up to 2.1 cm. No evidence for thoracic aortic aneurysm. IMPRESSION: 1. Left upper lobe 1.8 mm pulmonary nodule. 2. Moderate emphysematous changes. 3. No thoracic aortic aneurysm. 4. Scoliosis with postsurgical changes. CT LUNG RAD AND CT CHEST RECOMMENDATION: Lung-Rad 2 Benign Appearance or Behavior: Continue annual sc reening with LDCT in 12 months. S Modifier (other clinically significant findings): None [facility], , 12/16/2024 3:09 PM
== END | disposition home or self-care (01) ==
LOC: RADUSWWP 13:04
PROVIDERS: ATTEND Internal Medicine
DX: Z13.6 Encounter for screening for cardiovascular disorders (principal); I65.23 Occlusion and stenosis of bilateral carotid arteries; R91.1 Solitary pulmonary nodule; M41.86 Other forms of scoliosis, lumbar region
CPT/HCPCS: 71271; 76706; 93880

== ENCOUNTER → 2025-01-16 | Outpatient (CLI) | payer MEDICARE, OTHER ==
--- NOTE | 2025-01-17 07:54 | MM ---
Reason for Exam: Screening (asymptomatic). Last mammogram was performed 1 year(s) and 5 month(s) ago. Patient History: Menarche at age 10. First Full-Term at age 14. Left ovary removed at age 34. Right ovary removed at age 34. Hysterectomy at age 34. Postmenopausal. Estrogen for 6 months from age 34 until age 34. Risk Values: Sima 5 year model risk: 1.1%. NCI Lifetime model risk: 5.2%. Prior Study Comparison: 04/02/2019 Bilateral Diagnostic Mammogram, [facility]. 12/23/2020 Bilateral Screening Mammogram, [facility]. 09/01/2023 Bilateral MG 3D screening mammo w/cad, [facility]. Tissue Density: There are scattered areas of fibroglandular density. Findings: Analyzed By CAD. Right breast: There is no suspicious group of microcalcifications or new suspicious mass. Left breast: There is no suspicious group of microcalcifications or new suspicious mass. Overall Assessment: Negative, BI-RAD 1 Management: Screening Mammogram of both breasts in [address] [facility] will attempt to contact patient to return for supplemental views and ultrasound if indicated. Patient should continue monthly self-breast exams. A clinical breast exam by your physician is recommended on an annual basis. This exam should not preclude additional follow-up of suspicious palpable abnormalities. Note on Sima scores and lifetime risk: 1. A Sima score greater than 3% is considered moderate risk. If this is the case, consider specialist referral to assess eligibility for a risk reducing agent. 2. If overall lifetime risk for the development of breast cancer is 20% or higher, the patient may qualify for future screening with alternating mammogram and breast MRI. [facility], , 01/17/2025 7:50 AM. Electronically signed and approved by: Jerry Morelos DO
--- NOTE | 2025-01-17 13:01 | CA ---
Transthoracic Echo Report Name: Silvia Sadler Age: 59 Gender: F : 1965 Exam Date: 01/16/2025 15:23 Exam Location: [facility] Ht (in): 66 Wt (lb): 156 Ordering Physician: Maribell Dong MD Attending/Referring Phys: Maribell Dong MD [employer] Kylie Larson RDCS Procedure CPT: Indications: I25.118 Cardiac Hx: smoker Technical Quality: Fair Contrast 1: Total Dose (mL): Contrast 2: Total Dose (mL): MEASUREMENTS (Male / Female) Normal Values 2D ECHO LV Diastolic Diameter PLAX 3.8 cm 4.2 - 5.9 / 3.9 - 5.3 cm LV Systolic Diameter PLAX 2.7 cm IVS Diastolic Thickness 1.1 cm 0.6 - 1.0 / 0.6 - 0.9 cm LVPW Diastolic Thickness 1.0 cm 0.6 - 1.0 / 0.6 - 0.9 cm LV Relative Wall Thickness 0.6 RV Internal Dim ED PLAX 3.1 cm LA Systolic Diameter LX 2.9 cm 3.0 - 4.0 / 2.7 - 3.8 cm LV Diastolic Volume MOD BP 59.2 cm??? 67 - 155 / 56 - 104 cm??? LV Systolic Volume MOD BP 21.5 cm??? 22 - 58 / 19 - 49 cm??? LV Ejection Fraction MOD BP 63.6 % >= 55 % LV Cardiac Index MOD BP 1341.0 cm???/min???m??? LV Diastolic Volume MOD 4C 55.6 cm??? LV Systolic Volume MOD 4C 21.1 cm??? LV Ejection Fraction MOD 4C 62.1 % LV Cardiac Index MOD 4C 1230.1 cm???/min???m??? LV Diastolic Length 4C 6.4 cm LV Systolic Length 4C 5.2 cm LV Diastolic Volume MOD 2C 54.9 cm??? LV Systolic Volume MOD 2C 18.8 cm??? LV Ejection Fraction MOD 2C 65.7 % LV Cardiac Index MOD 2C 1284.3 cm???/min???m??? LV Diastolic Length 2C 7.5 cm LV Systolic Length 2C 6.2 cm M-MODE Aortic Root Diameter MM 3.0 cm LA Systolic Diameter MM 2.0 cm LA Ao Ratio MM 0.7 DOPPLER AV Peak Velocity 134.5 cm/s AV Peak Gradient 7.2 mmHg MV E' Velocity 8.9 cm/s TR Peak Velocity 230.2 cm/s TR Peak Gradient 21.2 mmHg Right Ventricular Systolic Press 31.2 mmHg FINDINGS Left Ventricle Left ventricular ejection fraction is estimated at 55-60 %. Small left ventricular cavity. Mildly increased septal wall thickness. Mildly increased posterior wall thickness. Normal left ventricular wall motion. Right Ventricle Normal right ventricular size. Right ventricular systolic pressure within normal limits. Right Atrium Normal right atrial size. No right atrial thrombus or mass seen. Left Atrium Normal left atrial size. No left atrial thrombus or mass present. Mitral Valve Structurally normal mitral valve. No mitral stenosis, regurgitation or prolapse. Aortic Valve Trileaflet aortic valve. Thickened aortic valve without stenosis. No aortic regurgitation. Tricuspid Valve Structurally normal tricuspid valve. Mild tricuspid regurgitation. Pulmonic Valve Pulmonic valve not well visualized. No pulmonic regurgitation. Pericardium No pericardial effusion. Aorta Normal size aortic root and proximal ascending aorta. CONCLUSIONS Normal LV size and systolic function. No significant abnormality on the Doppler exam. No pericardial effusion. Previewed by: Dr. Carlos Eduardo Winter MD (Electronically Signed) Final Date: 17 Jan 2025 13:00
== END | disposition home or self-care (01) ==
LOC: RADECHMAIN 15:13
PROVIDERS: ATTEND Internal Medicine
DX: Z12.31 Encounter for screening mammogram for malignant neoplasm of breast (principal); Z13.6 Encounter for screening for cardiovascular disorders; I65.23 Occlusion and stenosis of bilateral carotid arteries; M85.852 Other specified disorders of bone density and structure, left thigh; I25.118 Atherosclerotic heart disease of native coronary artery with other forms of angina pectoris; F17.210 Nicotine dependence, cigarettes, uncomplicated; R92.323 Mammographic fibroglandular density, bilateral breasts; Z78.0 Asymptomatic menopausal state
CPT/HCPCS: 77063; 77067; 93306

== ENCOUNTER → 2025-01-17 | Outpatient (CLI) | payer MEDICARE, OTHER ==
--- NOTE | 2025-01-18 13:10 | PE ---
EXAMINATION TYPE: PET CT fusion skull to thigh DATE OF EXAM: 01/17/2025 CLINICAL INDICATION:Female, 59 years old with history of R91.1 SOLITARY PULMONARY NODULE; TECHNIQUE: Following the intravenous administration of 11.92 mCi of F-18 FDG, whole body images are performed from the skull base to the Mid thigh. Images are reviewed on the computer in the coronal, axial, and sagittal planes. Reconstructed rotating images are created on independent workstation an d reviewed on the computer. A non-contrast CT is performed in conjunction with the PET scan. Glucos e level 103 mg/dL CT DLP: 699 mGycm, Automated exposure control for dose reduction was used. COMPARISON: CT 12/16/2024, PET/CT None, MRI: None FINDINGS: Mediastinal SUV mean is 2.0. Hepatic parenchyma SUV mean is 2.8. SKULL BASE AND NECK: No suspicious radiotracer activity. CHEST, MEDIASTINUM, AND HILAR REGION: No suspicious radiotracer activity. Left upper lobe pulmonary nodule seen on prior remains present measuring 2 mm. Right upper lobe constanza eptal and central lobular emphysema changes. ABDOMEN AND PELVIS: No suspicious radiotracer activity. MUSCULOSKELETAL STRUCTURES: No suspicious radiotracer activity. OTHER CT: Surgical clips/metallic body in the suprasellar region. Bilaterally aphakia. Atherosclerosi s of the carotid bifurcations and coronary arteries which are mild. The gallbladder surgically absent . Infrarenal abdominal saccular aneurysms dilation up to 2.4 cm. Postsurgical changes of the spine wi th hardware in place. IMPRESSION: There remains a 1.8 mm (not centimeter) pulmonary nodule no suspicious FDG activity. No evidence for lymphadenopathy. No evidence for malignancy. [facility], , 01/18/2025 1:08 PM
== END | disposition home or self-care (01) ==
LOC: RADPETMAIN 13:13
PROVIDERS: ATTEND Internal Medicine Critical Care Medicine
DX: R91.1 Solitary pulmonary nodule (principal)
CPT/HCPCS: 78815; A9552